=== PATIENT | male | born 1985 | race Caucasian/White ===

== ENCOUNTER 2020-01-24 15:45 | Emergency (ER) | payer OTHER, SELFPAY ==
[2020-01-24 15:56] VITALS: BP 136/80; PULSE 84; RESP 20; TEMP 36.8; O2SAT 98
--- NOTE | 2020-01-24 15:59 | DI.RAD.S_ITS ---
PROCEDURE: XR HAND LT MIN 3V INDICATIONS: injury base of 5th digit, stabbed by plane part TECHNIQUE: 3 COMPARISON: None. FINDINGS: Bones: No fractures or dislocations. Carpal bones are normally aligned. No suspicious bony lesions. Soft tissues: No suspicious soft tissue calcifications. IMPRESSION: No acute fracture. No osseous lesion. If symptoms and/or clinical suspicion for pathology persist, further assessment with repeat, or advanced imaging (e.g., CT, MRI, or bone scan) may be helpful for further assessment. Dictated by: Nahum Pettit M.D. on 01/24/2020 at 15:10 Approved by: Nahum Pettit M.D. on 01/24/2020 at 15:11
[2020-01-24 17:08] VITALS: BP 143/73; PULSE 80; RESP 18; O2SAT 96
[2020-01-24] MEDS: BACITRACIN OINT 0.9 GM PCKT 1 APPLIC TOP (17:09)
[2020-01-24] MEDS: cephALEXin 250 MG CAPSULE 500 MG PO (17:09)
[2020-01-24] MEDS: LIDO 1%/SOD BICARB 8.4% (10ML) 10 ML SYRINGE INJ (17:21)
--- NOTE | 2020-01-24 19:09 | ED_ITS ---
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 He states that he had an accident while working, and cut his hand on a piece of titanium related to a plane. He states that his hands are covered in oil and he tried to wash it off. States full range of motion of his hand, but that it hurts. Has not cleaned out. States his tetanus is up-to-date. Presents with laceration bandaged with gauze. Related Data Previous Rx's Medication Instructions Recorded cephalexin 500 mg PO TID 7 Days #21 cap 01/24/20 Review of Systems <BRADLEY Jacobson - Last Filed: 01/24/20 19:18> Review of Systems Narrative: GENERAL: Denies chills, fatigue, malaise, fever, sweats. HEENT: Denies sinus pain, ear pain, sore throat, difficulty swallowing, dizziness. RESPIRATORY: Denies dyspnea, cough, wheezing, hemoptysis, sputum. CARDIOVASCULAR: Denies chest pain, palpitations, orthopnea, edema, GASTROINTESTINAL: Denies nausea, vomiting, abdominal pain, diarrhea, constipation, melena. : Denies dysuria, frequency, incontinence, hematuria, urinary retention. MUSCULOSKELETAL: See HPI SKIN: See HPI NEUROLOGIC: Denies weakness, headache, numbness, change in speech, confusion, seizures, incoordination. PSYCHIATRIC: No concerning psychosocial issues. 12 point review of systems is negative except for those stated above Exam <BRADLEY Jacobson - Last Filed: 01/24/20 19:18> Narrative Exam Narrative: GENERAL: This is a well-nourished, well-developed patient, in no acute distress HEAD: Atraumatic. Normocephalic. No temporal or scalp tenderness. EYES: Pupils equal round and reactive. Extraocular motions intact. No scleral icterus. No injection or drainage. ENT: Nose without bleeding, purulent drainage or septal hematoma. Wearing a mask. Airway patent. NECK: Trachea midline. No JVD or lymphadenopathy. Supple, nontender, no meningeal signs. CARDIOVASCULAR: Regular rate and rhythm RESPIRATORY: No cough. No increased respiratory effort. No accessory muscle use. EXTREMITIES: 1 cm linear well-approximated laceration on dorsum of hand, left hand at base of 5th digit. Oozing blood. With obvious wound contamination, oil over bilateral hands. Able to flex and extend all fingers left hand against resistance, able to keep fingers apart. Capillary refill less than 2 seconds all fingers left hand. Positive left radial pulse. BACK: Nontender without deformity or crepitance. No flank tenderness. NEURO: AOx3. SKIN: See extremity exam Initial Vital Signs Initial Vital Signs: Vital Signs Temperature 98.2 F 01/24/20 15:56 Pulse Rate 84 01/24/20 15:56 Respiratory Rate 20 01/24/20 15:56 Blood Pressure 136/80 01/24/20 15:56 Pulse Oximetry 98 01/24/20 15:56 <Karen Herzog DO - Last Filed: 01/27/20 08:07> Initial Vital Signs Initial Vital Signs: Vital Signs Temperature 98.2 F 01/24/20 15:56 Pulse Rate 84 01/24/20 15:56 Respiratory Rate 01/24/20 15:56 Blood Pressure 136/80 01/24/20 15:56 Pulse Oximetry 98 01/24/20 15:56 Procedures <BRADLEY Jacobson - Last Filed: 01/24/20 19:18> Laceration Repair Laceration 1: Site: hand Side (If applicable): left Size (cm): 1 Description: linear Depth: simple, single layer Local Anesthetic: lidocaine 1% and with bicarb Amount of anesthesia used (mL): 3 Pre-repair: wound explored, irrigated extensively (Cleansed with Betasept) and deep structures intact Skin layer closed with: nylon Size (cm): 5-0 Number of sutures: 3 Technique: simple, interrupted Scores <BRADLEY Jacobson - Last Filed: 01/24/20 19:18> GCS Luis Eduardo coma scale eye opening: Spontaneous Luis Eduardo coma scale verbal response: Orientated Luis Eduardo coma scale motor response: Obey commands Luis Eduardo coma scale total score: 15 Course <BRADLEY Jacobson - Last Filed: 01/24/20 19:18> Orders Ordered: Discontinued Medications Bacitracin (Bacitracin Oint 0.9 Gm Pckt) 1 applic TOP NOW ONE Stop: 01/24/20 17:00 Last Admin: 01/24/20 17:09 Dose: 1 applic Documented by: NALINI Cephalexin HCl (Cephalexin 250 Mg Capsule) 500 mg PO NOW ONE Stop: 01/24/20 17:00 Last Admin: 01/24/20 17:09 Dose: 500 mg Documented by: NALINI Lidocaine/Sodium Bicarbonate (Lido 1%/Sod Bicarb 8.4% (10ml) 10 Ml Syringe) 10 ml INJ NOW ONE Stop: 01/24/20 16:43 Last Admin: 01/24/20 17:21 Dose: 10 ml Documented by: LILIANA Vital Signs Vital signs: Vital Signs - 8 hr 01/24/20 15:56 01/24/20 17:08 Temperature 98.2 F Pulse Rate 84 80 Respiratory Rate 20 18 Blood Pressure 136/80 143/73 H Pulse Oximetry 98 96 <Karen Herzog DO - Last Filed: 01/27/20 08:07> Orders Ordered: Discontinued Medications Bacitracin (Bacitracin Oint 0.9 Gm Pckt) 1 applic TOP NOW ONE Stop: 01/24/20 17:00 Last Admin: 01/24/20 17:09 Dose: 1 applic Documented by: NALINI Cephalexin HCl (Cephalexin 250 Mg Capsule) 500 mg PO NOW ONE Stop: 01/24/20 17:00 Last Admin: 01/24/20 17:09 Dose: 500 mg Documented by: NALINI Lidocaine/Sodium Bicarbonate (Lido 1%/Sod Bicarb 8.4% (10ml) 10 Ml Syringe) 10 ml INJ NOW ONE Stop: 01/24/20 16:43 Last Admin: 01/24/20 17:21 Dose: 10 ml Documented by: LILIANA Vital Signs Vital signs: Vital Signs - 8 hr 01/24/20 15:56 01/24/20 17:08 Temperature 98.2 F Pulse Rate 84 80 Respiratory Rate 20 18 Blood Pressure 136/80 143/73 H Pulse Oximetry 98 96 MDM - Wound/Laceration <BRADLEY Jacobson - Last Filed: 01/24/20 19:18> Differential Diagnosis Differential diagnosis: Likely laceration Imaging Data Extremity x-ray #1: Radiologist's Impression: [address] [place] [id number] XRay Report Signed Patient: Jaguar Rayo PMR#: [id number] : 1985Acct:[id number] Age/Sex: 34 / MDate of Service: 01/24/20 Loc: ED Accession Number: [id number] Procedure: XR hand LT min 3V Ordering Provider: Mabel Norris-BETH PROCEDURE: XR HAND LT MIN 3V INDICATIONS: injury base of 5th digit, stabbed by plane part TECHNIQUE: 3 COMPARISON: None. FINDINGS: Bones: No fractures or dislocations. Carpal bones are normally aligned. No suspicious bony lesions. Soft tissues: No suspicious soft tissue calcifications. IMPRESSION: No acute fracture. No osseous lesion. If symptoms and/or clinical suspicion for pathology persist, further assessment with repeat, or advanced imaging (e.g., CT, MRI, or bone scan) may be helpful for further assessment. Dictated by: Nahum Pettit M.D. on 01/24/2020 at 15:10 Approved by: Nahum Pettit M.D. on 01/24/2020 at 15:11 [facility] Narrative Medical decision making narrative: The patient is a 34-year-old male who presents with a chief complaint of a laceration to his left hand at the base of his 5th digit. Full range of motion noted. Neurovascular intact throughout his stay. X-ray has no acute findings. Patient's tetanus is up-to-date as he is active duty . Laceration was closed as per procedural note patient tolerated well. Given obvious wound contamination with oil, will place patient on antibiotics. The discussed using with probiotic or yogurt to help prevent antibiotic associated diarrhea. Discussed at length suture removal in approximately 7 days, keeping wound clean and dry, monitoring for signs and symptoms of infection. Patient has no questions or concerns upon discharge and states understanding of return precautions as well as follow-up care. Discharge Plan Departure Patient Disposition: Home Clinical Impression: Laceration Instructions: How to Care for a Laceration After Repair, DI for Laceration Repair, DI for Minor Laceration Activity Restrictions/Additional Instructions: Thank you for trusting us with your care today. As discussed, we placed 3 sutures in your hand. Please monitor for signs and symptoms of infection such as extending redness etcetera. Given obvious wound contamination with well, we elected to treat you with antibiotics. I sent this prescription to [facility] in [place]. Please take this with probiotic or yogurt to help prevent antibiotic associated GI side effects such as diarrhea. Please follow-up with primary care provider in the next few days. Please follow-up in approximately 1 week for suture removal. Please do not submerge her hand into [place] water pond water any other dirty water as this can increase your chance of infection Please come back to the emergency department for any acute concerns Prescriptions: New cephalexin 500 mg capsule 500 mg PO TID 7 Days Qty: 21 RF: 0 Referrals: [facility] [Provider Group] <Karen Herzog DO - Last Filed: 01/27/20 08:07> Cosign ED Attending Daquan Attestation: I was immediately available in the department for consultation. Documentation has been reviewed. I agree with assessment and plan.
== END 2020-01-24 17:25 | disposition home or self-care (01) ==
PROVIDERS: Emergency Provider Nurse Practitioner Family
DX: S61.217A Laceration without foreign body of left little finger without damage to nail, initial encounter (principal); W26.8XXA Contact with other sharp object(s), not elsewhere classified, initial encounter
CPT/HCPCS: 12001; 73130; 99283

== ENCOUNTER 2024-02-18 09:41 | Emergency (ER) | payer OTHER, SELFPAY ==
--- NOTE | 2024-02-18 09:48 | EKG_ITS ---
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
--- NOTE | 2024-02-18 09:52 | DI.RAD.S_ITS ---
PROCEDURE: XR CHEST 1V INDICATIONS: Shortness of breath TECHNIQUE: One view of the chest was acquired. COMPARISON: None. FINDINGS: Surgical changes and devices: None. Lungs and pleura: Lungs are clear. No pleural effusions or pneumothorax. Mediastinum: Mediastinal contours appear normal. Heart size is normal. Bones and chest wall: No suspicious bony lesions. Overlying soft tissues appear unremarkable. IMPRESSION: No acute cardiopulmonary abnormality is seen. Dictated by: Wendy Pisano M.D. on 02/18/2024 at 10:34 Approved by: Wendy Pisano M.D. on 02/18/2024 at 10:34
[2024-02-18 09:57] VITALS: BP 133/78; PULSE 76; RESP 16; TEMP 36.8; O2SAT 95; BMI 40.6
[2024-02-18 10:02] VITALS: PULSE 74; O2SAT 94
[2024-02-18 10:03] VITALS: BP 132/81; PULSE 73; RESP 19; O2SAT 95
--- NOTE | 2024-02-18 10:16 | ED_ITS ---
HPI - Chest Pain General Chief Complaint: Chest Pain Stated Complaint: chest pain left arm tingly Time Seen by Provider: 02/18/24 10:05 Source: patient Mode of arrival: Ambulatory Limitations: no limitations History of Present Illness HPI narrative: 38-year-old male presents by private vehicle from home for central chest pain since around 8:00 a.m. this morning. Also reports associated pain in his ears and jaw pain. Associated left arm ?tingling?. Nothing seems to make the pain better or worse. Denies previous history of chest pains. Patient states that his father has had stents in the last several years, but he was not very close to his father and does not know the exact age he was diagnosed with cardiac disease. Patient denies history of diabetes, hypertension, other complaints. Related Data Allergies Allergy/AdvReac Type Severity Reaction Status Date / Time No Known Drug Allergies Allergy Verified 02/18/24 09:57 Patient History Social History Smoking Status: Unknown if ever smoked Smoking Status: Unknown if ever smoked Exam Initial Vital Signs Initial Vital Signs: Vital Signs Temperature 98.3 F 02/18/24 09:57 Pulse Rate 76 02/18/24 09:57 Respiratory Rate 16 02/18/24 09:57 Blood Pressure 133/78 02/18/24 09:57 Pulse Oximetry 95 02/18/24 09:57 Oxygen Delivery Method Room Air 02/18/24 09:57 Const: Awake, alert, no acute distress, nontoxic appearing Cardiac: regular rate, regular rhythm RESP: unlabored, clear bilaterally, no wheezing Skin: Warm, Dry, intact, no rashes Neuro: AO x3, CN II-XII grossly intact, moves all extremities Course Orders Ordered: ED Orders 02/18/24 09:52 XR chest 1V Stat EKG-12 Lead Stat Measure peak expiratory flow ONCE RT Consult Eval and Treat NOW 02/18/24 10:08 Complete Blood Count AUTO DIFF Stat Comprehensive Metabolic Panel Stat Lactate (Lactic Acid) Stat NT-proBNP (BNP-Adult 18+) Stat Prothrombin Time INR Stat Troponin I Stat Discontinued Medications Al Hydrox/Mg Hydrox/Simethicone (Mag Hydrox/Alum/Simeth 30 Ml Udc) 30 ml PO NOW ONE Stop: 02/18/24 10:38 Last Admin: 02/18/24 11:09 Dose: 30 ml Documented By: YENI Lidocaine HCl (Lidocaine Viscous 2% 15 Ml Solution) 15 ml PO NOW ONE Stop: 02/18/24 10:38 Last Admin: 02/18/24 11:08 Dose: 15 ml Documented By: YENI Vital Signs Vital signs: Vital Signs - 8 hr 02/18/24 09:57 02/18/24 10:02 02/18/24 10:03 Temperature 98.3 F Pulse Rate 76 74 73 Respiratory Rate 16 19 Blood Pressure 133/78 Pulse Oximetry 95 94 95 Oxygen Delivery Method Room Air 02/18/24 10:03 02/18/24 10:30 02/18/24 10:30 Temperature Pulse Rate 76 Respiratory Rate 20 Blood Pressure 132/81 122/83 Pulse Oximetry 95 Oxygen Delivery Method 02/18/24 11:00 02/18/24 11:00 02/18/24 11:30 Temperature Pulse Rate 63 66 Respiratory Rate 14 19 Blood Pressure 124/67 Pulse Oximetry 94 95 Oxygen Delivery Method Room Air MDM - Chest Pain Differential Diagnosis Differential diagnosis: Likely atypical chest pain, costochondritis and chest pain Lab Data 02/18/24 10:08 02/18/24 10:08 Labs: Lab Results 02/18/24 Range/Units 10:08 WBC 6.2 (4.5-11.0) X10^3/uL RBC 5.02 (4.5-5.9) X10^6/uL Hgb 14.5 (13.5-17.5) g/dL Hct 42.6 (41-53) % MCV 84.8 (80-100) fL MCH 28.9 (26-34) PG MCHC 34.1 (30-36) % RDW 14.1 (11.6-14.8) % Plt Count 316 (150-400) X10^3/uL Neut % (Auto) 62.2 (50-75) % Lymph % (Auto) 27.8 (25-40) % [place] % (Auto) 7.0 (3-14) % Eos % (Auto) 2.5 (2-4) % Baso % (Auto) 0.5 (0-2) % Neut # (Auto) 3900 (9609-1437) /uL Lymph # (Auto) 1700 (9368-6151) /uL [place] # (Auto) 400 (0-900) /uL Eos # (Auto) 200 (0-450) /uL Baso # (Auto) 0 (0-100) /uL PT 11.7 (9.4-12.5) SECONDS INR 1.0 (0.9-1.3) Sodium 137 (137-145) mmol/L Potassium 4.0 (3.4-5.1) mmol/L Chloride 105 (98-107) mmol/L Carbon Dioxide 23 (22-32) mmol/L BUN 13 (9-20) mg/dL Creatinine 1.02 (0.66-1.25) mg/dL Estimated GFR > 60 (>60) mL/min BUN/Creatinine Ratio 12.7 (6-22) Glucose 101 H (70-100) mg/dL Lactate 1.2 (0.7-2.1) mmol/L Calcium 9.3 (8.4-10.2) mg/dL Total Bilirubin 0.7 (0.2-1.3) mg/dL AST 39 (17-59) IU/L ALT 37 (<50) IU/L Alkaline Phosphatase 43 (38-126) U/L Troponin I < 0.012 (0.01-0.034) ng/mL NT-Pro-B Natriuret Pep 21 (<125) pg/mL Total Protein 7.1 (6.3-8.2) g/dL Albumin 4.4 (3.5-5.0) g/dL Globulin 2.7 (1.7-4.1) g/dL Albumin/Globulin Ratio 1.6 (1.0-2.8) Imaging Data Chest x-ray: Radiologist's Impression: PROCEDURE: XR CHEST 1V INDICATIONS: Shortness of breath TECHNIQUE: One view of the chest was acquired. COMPARISON: None. FINDINGS: Surgical changes and devices: None. Lungs and pleura: Lungs are clear. No pleural effusions or pneumothorax. Mediastinum: Mediastinal contours appear normal. Heart size is normal. Bones and chest wall: No suspicious bony lesions. Overlying soft tissues appear unremarkable. IMPRESSION: No acute cardiopulmonary abnormality is seen. Dictated by: Wendy Pisano M.D. on 02/18/2024 at 10:34 Approved by: Wendy Pisano M.D. on 02/18/2024 at 10:34 ECG Data Interpretation: Normal sinus rhythm at 76 beats per minute. Normal WI, no ST T wave changes MDM Narrative Medical decision making narrative: 1 day of chest pain. Physical exam unremarkable. Heart score 2 based on family history of heart disease and obesity. EKG sinus rhythm without concerning findings. Chest x-ray negative for acute findings. Troponin undetectable. Overall low risk chest pain. Patient counseled on lab results, recommended close PCP follow up. ED return precautions discussed with patient and at bedside. Discharge Plan Departure Patient Disposition: Home Clinical Impression: Chest pain Instructions: DI for Atypical Chest Pain Activity Restrictions/Additional Instructions: Your laboratory work, EKG, and chest x-ray today were all reassuring. I do not know the exact cause of your chest pain but it does not appear to be a heart attack at this time. Follow up with your primary care doctor. If you notice any new or worsening symptoms please feel free to return to the emergency department for repeat evaluation. Stand Alone Forms: Patient Portal/API/Survey, Work Release Note
[2024-02-18 10:22] LABS: Prothrombin Time 11.7 SECONDS (9.4-12.5)
[2024-02-18 10:24] LABS: Add Manual Diff / Slide Review NO; Basophils Absolute Auto 0 /uL (0-100); Basophils Percent Auto 0.5 % (0-2); Eosinophils Absolute Auto 200 /uL (0-450); Eosinophils Percent Auto 2.5 % (2-4); Hematocrit 42.6 % (41-53); Hemoglobin 14.5 g/dL (13.5-17.5); Lymphocytes Absolute Auto 1700 /uL (1100-4500); Lymphocytes Percent Auto 27.8 % (25-40); Mean Corpuscular HGB Conc 34.1 % (30-36); Mean Corpuscular Hemoglobin 28.9 PG (26-34); Mean Corpuscular Volume 84.8 fL (80-100); Monocytes Absolute Auto 400 /uL (0-900); Neutrophils Absolute Auto 3900 /uL (1500-7000); Neutrophils Percent Auto 62.2 % (50-75); Platelet Count 316 X10^3/uL (150-400); Red Blood Cell Count 5.02 X10^6/uL (4.5-5.9); Red Cell Distribution Width 14.1 % (11.6-14.8); White Blood Cell Count 6.2 X10^3/uL (4.5-11.0)
[2024-02-18 10:25] LABS: Alanine Aminotransferase 37 IU/L (<50); Albumin 4.4 g/dL (3.5-5.0); Albumin Globulin Ratio 1.6 (1.0-2.8); Alkaline Phosphatase 43 U/L (38-126); Aspartate Aminotransferase 39 IU/L (17-59); BUN Creatinine Ratio 12.7 (6-22); Bilirubin Total 0.7 mg/dL (0.2-1.3); Blood Urea Nitrogen 13 mg/dL (9-20); Calcium 9.3 mg/dL (8.4-10.2); Carbon Dioxide 23 mmol/L (22-32); Chloride 105 mmol/L (98-107); Estimated Glomerular Filt Rate > 60 mL/min (>60); Globulin 2.7 g/dL (1.7-4.1); Glucose 101 mg/dL (70-100); HEMOLYSIS < 15 (0-50); Lactate (Lactic Acid) 1.2 mmol/L (0.7-2.1); Sodium 137 mmol/L (137-145); Total Protein 7.1 g/dL (6.3-8.2)
[2024-02-18 10:30] VITALS: BP 122/83; PULSE 76; RESP 20; O2SAT 95
[2024-02-18 10:37] LABS: NT-proBNP (BNP-Adult 18+) 21 pg/mL (<125); Troponin I < 0.012 ng/mL (0.01-0.034)
[2024-02-18 11:00] VITALS: BP 124/67; PULSE 63; RESP 14; O2SAT 94
[2024-02-18] MEDS: LIDOCAINE VISCOUS 2% 15 ML SOLUTION PO (11:08)
[2024-02-18] MEDS: MAG HYDROX/ALUM/SIMETH 30 ML UDC PO (11:09)
[2024-02-18 11:30] VITALS: PULSE 66; RESP 19; O2SAT 95
== END 2024-02-18 11:39 | disposition home or self-care (01) ==
PROVIDERS: Emergency Provider Emergency Medicine
DX: R07.9 Chest pain, unspecified (principal); R06.02 Shortness of breath; I49.8 Other specified cardiac arrhythmias
CPT/HCPCS: 36415; 71045; 80053; 83605; 83880; 84484; 85025; 85610; 93005; 93010; 99284